=== PATIENT | male | born 1985 | race Caucasian/White ===

== ENCOUNTER 2019-09-28 06:22 | Emergency (ER) | payer OTHER ==
[~2019-09-28] VITALS: Ht 180.3 cm; Wt 90.7 kg
[2019-09-28] MEDS ORDERED: EUTHYROX50 MCG (06:40)
== END 2019-09-28 08:30 | disposition home or self-care (01) ==
LOC: ER 06:22
DX: S01.81XA Laceration without foreign body of other part of head, initial encounter (principal); W22.8XXA Striking against or struck by other objects, initial encounter
CPT/HCPCS: 12013; 99282-25